=== PATIENT | female | born 1990 | race Caucasian/White ===

== ENCOUNTER 2016-09-26 13:00 | Emergency (ER) | payer OTHER ==
[2016-09-26 15:40] VITALS: BP 127/66
--- NOTE | 2016-09-26 15:48 | UC ---
UC General HPI - HPI Summary HPI Summary: 2 complaints 1. sore throat hard to swallow 2. hurts to urinate, feels like there is little bumps - History of Current Complaint Chief Complaint: UCGeneralIllness Stated Complaint: PERSONAL Time Seen by Provider: 09/26/16 15:34 Hx Obtained From: Patient Onset/Duration: Sudden Onset, Lasting Days Timing: Constant Onset Severity: Moderate Current Severity: Moderate Pain Intensity: 6 - groin area - Allergy/Home Medications Allergies/Adverse Reactions: Allergies Allergy/AdvReac Type Severity Reaction Status Date / Time Amoxicillin Allergy Hives Verified 09/26/16 15:41 Home Medications: Home Medications Cyanocobalamin [B-12] 1,000 mcg PO DAILY 09/26/16 [History Confirmed 09/26/16] Multiple Vitamin [Daily Multiple Vitamins] 1 tab PO 09/26/16 [History] PMH/Surg Hx/FS Hx/Imm Hx Previously Healthy: Yes - Surgical History Surgical History: Yes Surgery Procedure, Year, and Place: RIGHT FIRST TOE SX--2010. SKIN BX - Family History Known Family History: Positive: Hypertension - Social History Alcohol Use: Weekly Substance Use Type: None Smoking Status (MU): Never Smoked Tobacco Review of Systems Constitutional: Negative Skin: Rash Eyes: Negative ENT: Sore Throat Cardiovascular: Negative Gastrointestinal: Negative Genitourinary: Negative Motor: Negative Neurovascular: Negative Musculoskeletal: Negative Neurological: Negative Psychological: Negative All Other Systems Reviewed And Are Negative: Yes Physical Exam Triage Information Reviewed: Yes Appearance: Well-Appearing, Well-Nourished, Pain Distress Vital Signs: Initial Vital Signs Temp 99.7 F 09/26/16 15:33 Pulse 108 09/26/16 15:33 Resp 16 09/26/16 15:33 BP 127/66 09/26/16 15:33 Pulse Ox 100 09/26/16 15:33 Vital Signs Reviewed: Yes Eye Exam: Normal Eyes: Positive: Conjunctiva Clear ENT: Positive: Hearing grossly normal, Pharyngeal erythema, TMs normal, Tonsillar swelling Dental Exam: Normal Neck exam: Normal Neck: Positive: Supple, Nontender, Enlarged Nodes @ - right cervical Respiratory Exam: Normal Respiratory: Positive: Chest non-tender, Lungs clear, Normal breath sounds Cardiovascular Exam: Normal Cardiovascular: Positive: RRR, No Murmur, Pulses Normal Abdominal Exam: Normal Abdomen Description: Positive: Nontender, No Organomegaly, Soft Bowel Sounds: Positive: Present Musculoskeletal Exam: Normal Musculoskeletal: Positive: Strength Intact, ROM Intact, No Edema Neurological Exam: Normal Neurological: Positive: Alert, Muscle Tone Normal Psychological Exam: Normal Skin: Positive: Other - small red pustules around the labia patient does shave, no unusual discharge, Course/Dx - Course Course Of Treatment: hx obtained, exam performed, urined GC/CL obtained upon patients request, she is not experienceing any notable symptoms. treated for folliculitis with keflex. educated on symtom relief for pharyngitis - Differential Dx - Multi-Symptom Provider Diagnoses: pharyngitis. folliculitis Discharge - Discharge Plan Condition: Stable Disposition: HOME Prescriptions: Cephalexin CAP* [Keflex CAP*] 500 mg PO TID #21 cap Patient Education Materials: Folliculitis (ED) Referrals: Non Staff,Doctor [Medical Doctor] - Additional Instructions: Take the medication as prescribed. FOr the Upper Respiratory symptoms, increase your fluid intake and get plenty of rest. warm tea to soothe the throat.
== END 2016-09-26 16:43 | disposition home or self-care (01) ==
LOC: UCCORT 13:00
DX: J02.9 Acute pharyngitis, unspecified (principal); L73.9 Follicular disorder, unspecified; Z88.1 Allergy status to other antibiotic agents
CPT/HCPCS: 87491; 87591; 99202; G0463

== ENCOUNTER 2017-02-03 17:28 | Emergency (ER) | payer OTHER ==
[2017-02-03 18:10] VITALS: BP 99/68
--- NOTE | 2017-02-03 19:48 | UC ---
Cardiac HPI - HPI Summary HPI Summary: 26 YO FEMALE WITH RIGHT LOWER RIB PAIN X DAYS HURTS TO TWIST/BEND OVER HYPER EXTEND BACK NO KNOWN TRAUMA NO ABD PAIN NO URI SYMPTOMS NO SOB NO N/V/D CURRENTLY ON PERIOD - History of Current Complaint Chief Complaint: UCUpperExtremity Stated Complaint: RT SIDE RIB AREA PAIN Time Seen by Provider: 02/03/17 19:41 Hx Obtained From: Patient Onset/Duration: Gradual Onset, Lasting Days Timing: Constant Initial Severity: Mild Current Severity: Mild Pain Intensity: 3 - WORSE WITH CERTAIN POSITIONS Chest Pain Location: Right Lateral Character: Sharp/Stabbing Aggravating: Position Alleviating: Rest Associated Signs & Symptoms: Positive: Chest Pain - Allergy/Home Medications Allergies/Adverse Reactions: Allergies Allergy/AdvReac Type Severity Reaction Status Date / Time Amoxicillin Allergy Hives Verified 02/03/17 18:10 PMH/Surg Hx/FS Hx/Imm Hx Previously Healthy: Yes - Surgical History Surgical History: Yes Surgery Procedure, Year, and Place: RIGHT FIRST TOE SX--2010. SKIN BX - Family History Known Family History: Positive: Hypertension Negative: Cardiac Disease - Social History Alcohol Use: Occasionally Substance Use Type: None Smoking Status (MU): Never Smoked Tobacco Review of Systems Constitutional: Negative Skin: Negative Eyes: Negative ENT: Negative Respiratory: Negative Cardiovascular: Chest Pain Gastrointestinal: Negative Genitourinary: Negative Motor: Negative Neurovascular: Negative Musculoskeletal: Negative Neurological: Negative Psychological: Negative All Other Systems Reviewed And Are Negative: Yes Physical Exam Triage Information Reviewed: Yes Appearance: Well-Appearing, No Pain Distress, Well-Nourished, Thin Vital Signs: Initial Vital Signs Temp 99 F 02/03/17 18:01 Pulse 88 02/03/17 18:01 Resp 16 02/03/17 18:01 BP 99/68 02/03/17 18:01 Pulse Ox 98 02/03/17 18:01 Vital Signs Reviewed: Yes Eyes: Positive: Conjunctiva Clear ENT: Positive: Hearing grossly normal. Negative: Nasal congestion, Nasal drainage, Trismus, Muffled/hoarse voice Neck: Positive: Supple, Nontender, No Lymphadenopathy Respiratory: Positive: Lungs clear, Normal breath sounds, No respiratory distress. Negative: Chest non-tender Cardiovascular: Positive: RRR, No Murmur Abdomen Description: Positive: No Organomegaly. Negative: Nontender, Splenomegaly Musculoskeletal: Positive: ROM Intact, No Edema Neurological: Positive: Alert, Muscle Tone Normal Psychological Exam: Normal Skin Exam: Normal - Clinical Impression Provider Diagnoses: right lower rib tenderness/pain of uncertain cause. right upper abd tenderness of uncertain cause Discharge - Discharge Plan Condition: Stable Disposition: HOME Patient Education Materials: Abdominal Pain (ED) Forms: *Work Release Referrals: Qiana Abdi MD [Primary Care Provider] - As Soon As Possible Additional Instructions: I am unsure of the cause of your rib pain With all the lifting you do it could be related to a strain You are also markedly tender overlying your gall bladder and liver Blood work is pending you need to go to the ER for fever/vomiting/ increased pain advil or aleve for pain Images Front/Back of Body, Lg ([place]): 1 - TENDER RIB SPRINGING 2 - TENDER ruq
--- NOTE | 2017-02-03 20:55 | RAD ---
Indication: Right rib pain. 3 views of the right ribs and a PA view the chest demonstrates no fracture of the ribs. The chest demonstrates no pneumothorax. Lung gardner demonstrate no pleural fluid, pneumonia or pneumothorax. IMPRESSION: No active disease is noted. No fracture of the right ribs is noted.
[2017-02-04 10:18] LABS: Hematocrit 39 % (35-47); Hemoglobin 13.3 g/dl (12.0-16.0); Mean Corpuscular HGB Conc 34 g/dl (31-36); Mean Corpuscular Hemoglobin 31 pg (27-31); Mean Corpuscular Volume 91 fL (80-97); Mean Platelet Volume 9 um3 (7.4-10.4); Red Blood Count 4.31 10^6/ul (4.0-5.4); Red Cell Distribution Width 12 % (10.5-15); White Blood Count 7.1 10^3/ul (3.5-10.8)
[2017-02-04 15:50] LABS: Albumin 4.6 g/dL (3.2-5.2); Calcium 9.4 mg/dL (8.6-10.3); EGFR African American 97.7 (>60); Globulin 2.5 g/dL (2-4); Potassium 4.3 mmol/L (3.5-5.0); Total Bilirubin 0.6 mg/dL (0.2-1.0); Total Protein 7.1 g/dL (6.4-8.9)
== END 2017-02-03 20:51 | disposition home or self-care (01) ==
LOC: UCCORT 17:28
DX: R07.81 Pleurodynia (principal); R10.811 Right upper quadrant abdominal tenderness; Z88.1 Allergy status to other antibiotic agents
CPT/HCPCS: 36415; 80053; 81003; 85025; 87086; 99211; G0463